=== PATIENT | male | born 1955 | race Caucasian/White ===

== ENCOUNTER → 2018-12-31 | Outpatient (CLI) | payer BC ==
--- NOTE | 2018-12-31 22:52 | MR ---
EXAMINATION TYPE: MR abdomen wo/ con DATE OF EXAM: 12/31/2018 COMPARISON: CT scan 12/17/2018 HISTORY: Adrenal mass. CONTRAST: Standard multiplanar, multisequence MRI departmental protocol FINDINGS: There is a 3.5 x 2.2 cm oval-shaped left adrenal mass. There is a 1.5 cm right adrenal mass . The in phase and out of phase images show significant decreased signal on the out of phase images travis t is consistent with a large amount of fat in the adrenal masses. Liver shows no focal defect. Bile ducts are not dilated. Pancreas appears normal. Spleen appears norm al. Kidneys show normal size and contour. There is no hydronephrosis. There is no sign of retroperito adriana adenopathy. There is no pleural effusion. There is no ascites. There is no sign of a bowel obstr uction. Stomach appears normal. IMPRESSION: Bilateral adrenal masses show significant fat content and consistent with myelolipoma.
== END | disposition home or self-care (01) ==
LOC: RADMRIMAIN 16:29
PROVIDERS: ATTEND Nurse Practitioner
DX: E27.9 Disorder of adrenal gland, unspecified (principal)
CPT/HCPCS: 74183; A9585

== ENCOUNTER → 2023-07-08 | Outpatient (CLI) | payer BC ==
[2023-07-09 07:48] LABS: Chol/HDL Ratio 3.13 Ratio; LDL Cholesterol,Calculated 65.5 mg/dL (0.0-131.0); VLDL Calculation 18.94 mg/dL (5.00-40.00)
[2023-07-09 08:13] LABS: ALT 19 U/L (10-49); AST 20 U/L (14-35); Albumin 4.6 g/dL (3.8-4.9); Alkaline Phosphatase 65 U/L (41-126); BUN/Creat Ratio 16.75 Ratio (12.00-20.00); Blood Urea Nitrogen 13.4 mg/dL (9.0-27.0); Calcium 9.5 mg/dL (8.7-10.3); Carbon Dioxide 25.1 mmol/L (21.6-31.8); Chloride 108 mmol/L (96-109); Globulin 2.3 g/dL (1.6-3.3); Glucose 107 mg/dL (70-110); Potassium 4.3 mmol/L (3.5-5.5); Sodium 144 mmol/L (135-145); Total Bilirubin 0.5 mg/dL (0.3-1.2); Total Protein 6.9 g/dL (6.2-8.2)
== END | disposition home or self-care (01) ==
LOC: LABWHC1 11:15
PROVIDERS: ATTEND Family Medicine
DX: I10 Essential (primary) hypertension (principal); E11.9 Type 2 diabetes mellitus without complications; R79.89 Other specified abnormal findings of blood chemistry
CPT/HCPCS: 36415; 80053; 80061; 83036

== ENCOUNTER → 2024-07-24 | Outpatient (CLI) | payer OTHER ==
[2024-07-24 10:24] LABS: Basophils # (A) 0.08 X 10*3/uL (0.00-0.10); Eosinophils # (A) 0.25 X 10*3/uL (0.04-0.35); Eosinophils % (A) 3.1 %; HCT 49.1 % (39.6-50.0); HGB 16.1 g/dL (13.0-17.0); Lymphocytes % (A) 24.5 %; MCH 29.7 pg (27.0-32.0); MCHC 32.8 g/dL (32.0-37.0); MCV 90.6 FL (80.0-97.0); Mean Platelet Volume 9.6 FL (9.5-12.2); Monocytes # (A) 0.86 X 10*3/uL (0.20-1.00); Monocytes % (A) 10.5 %; NRBC Per 100 WBC 0 X 10*3/uL (0.00-0.01); Neutrophils # (A) 4.94 X 10*3/uL (1.80-7.70); Neutrophils % (A) 60.4 %; Platelet Count 248 X 10*3/uL (140-440); RBC 5.42 X 10*6/uL (4.40-5.60); RDW 14.3 % (11.5-14.5); WBC 8.17 X 10*3/uL (4.50-10.00)
[2024-07-24 10:37] LABS: Microalbumin Creatinine Ratio <9 mg/g Cr (0-30)
[2024-07-24 10:47] LABS: ALT 16 U/L (10-49); AST 22 U/L (14-35); Albumin 4.6 g/dL (3.8-4.9); Alkaline Phosphatase 61 U/L (41-126); BUN/Creat Ratio 36.12 Ratio (12.00-20.00); Blood Urea Nitrogen 28.9 mg/dL (9.0-27.0); Calcium 9.7 mg/dL (8.7-10.3); Carbon Dioxide 22.9 mmol/L (21.6-31.8); Chloride 106 mmol/L (96-109); Chol/HDL Ratio 2.54 Ratio; Globulin 2.3 g/dL (1.6-3.3); Glucose 95 mg/dL (70-110); LDL Cholesterol,Calculated 50.2 mg/dL (0.0-131.0); PSA Annual Screen 0.771 ng/mL (0.000-4.000); Potassium 4.3 mmol/L (3.5-5.5); Sodium 142 mmol/L (135-145); Total Bilirubin 0.5 mg/dL (0.3-1.2); Total Protein 6.9 g/dL (6.2-8.2); VLDL Calculation 18.88 mg/dL (5.00-40.00)
== END | disposition home or self-care (01) ==
LOC: LABWHC1 07:52
PROVIDERS: ATTEND Family Medicine
DX: Z00.00 Encounter for general adult medical examination without abnormal findings (principal); Z12.5 Encounter for screening for malignant neoplasm of prostate; E11.40 Type 2 diabetes mellitus with diabetic neuropathy, unspecified; I10 Essential (primary) hypertension; R79.89 Other specified abnormal findings of blood chemistry; Z79.899 Other long term (current) drug therapy
CPT/HCPCS: 80061; 80053; 85025; 82043; 82570; 83036; 36415; G0103